=== PATIENT | female | born 1955 | race Caucasian/White ===

== ENCOUNTER 2017-05-14 12:28 | Emergency (ER) | payer OTHER | END 2017-05-14 16:55 | disposition home or self-care (01) | LOC: ER 12:28 | DX: S72.002A Fracture of unspecified part of neck of left femur, initial encounter for closed fracture (principal); J45.909 Unspecified asthma, uncomplicated; G89.29 Other chronic pain; K21.9 Gastro-esophageal reflux disease without esophagitis; Z90.710 Acquired absence of both cervix and uterus; Z90.49 Acquired absence of other specified parts of digestive tract; Z91.018 Allergy to other foods; Z88.8 Allergy status to other drugs, medicaments and biological substances; Z88.2 Allergy status to sulfonamides; Z88.0 Allergy status to penicillin; Z88.5 Allergy status to narcotic agent; Z91.040 Latex allergy status; Z91.041 Radiographic dye allergy status; X58.XXXA Exposure to other specified factors, initial encounter; Y93.89 Activity, other specified; Y99.8 Other external cause status; Y92.89 Other specified places as the place of occurrence of the external cause | CPT/HCPCS: 99284 ==

== ENCOUNTER → 2018-05-15 | Outpatient (CLI) | payer BC ==
[~2018-05-15] MED LIST: CETI10TA16 PO; FLUT16SP NS; IOHEXOL 180 MG/ML 10 ML VIAL. IJ ONE; LIDOCAINE WITH 8.4% SOD BICARB 3 ML DISP.SYRIN. INJ ONE; PSYL0.5215 PO; XOPENEX HFA15 GM IH
[2018-05-15 14:26] VITALS: BP 129/72
--- NOTE | 2018-05-15 15:02 | NUR ---
pt A&O x3. denies h/a. dressing on mid lower back is clean and dry. pt ambulated to BR w/o problem. c/o chronic left hip pain 07/27.tolerating po fluid well. reviewed d/c instructions. left unit - ambulatory and accompanied by .
--- NOTE | 2018-05-15 17:26 | RAD ---
Lumbar myelogram, 05/15/2018: History: Lumbar radiculopathy, left hip pain Under local anesthesia, aseptic conditions and fluoroscopic guidance a lumbar puncture was performed at the upper L3 level utilizing a 25-gauge lytic or spinal needle. Good clear CSF flow was obtained following which 10 cc of Omnipaque 180 was injected into the thecal sac. The spinal needle was then removed and hemostasis obtained. Appropriate digital imaging was then performed. 2.4 minutes of fluoroscopy time was utilized. 15 fluoroscopic spot images were recorded. 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 She tolerated the procedure well and left the department in stable condition. The following findings are delineated on the myelogram: 1. There is mild disc space narrowing and moderate marginal spurring at multiple levels. There are moderate degenerative changes involving the facet joints in the lower lumbar spine. 2. There are mild anterior extradural defect at all of the disc levels from L2-3 down through L5-S1. There is borderline narrowing of the AP diameter of the thecal sac at the L3-4 level. 3. Standing lateral views in flexion and extension show no significant subluxation or instability. 4. No other significant intradural or extradural abnormality is detected. CT of the lumbar spine-post myelogram, 05/15/2018: Multidetector CT imaging was performed with multiplanar reconstructions produced. The following findings are delineated: 1. At L1-2 the central spinal canal and neural foramina are well preserved. 2. At L2-3 there is mild disc space narrowing and marginal spurring. There is no significant posterior disc bulge or protrusion. The central spinal canal and neural foramina are well maintained. 3. At L3-4 there is mild broad-based posterior disc bulging with mild posterior marginal spurring. There are mild degenerative changes involving the facet joints with posterior ligamentous thickening. In the supine position the thecal sac measures 10-11 mm in AP diameter at the midline. There is no significant foraminal narrowing. 4. At L4-5 there is moderate broad-based posterior disc bulging and mild marginal spurring. There are mild degenerative changes involving the facet joints bilaterally. There is only minimal inferior foraminal narrowing bilaterally. The central spinal canal is well maintained. 5. At L5-S1 there is disc space narrowing with a vacuum disc phenomena and mild marginal spurring. There is mild posterior disc protrusion and disc calcification most prominent just to the left of midline. This abuts the S1 nerve root sleeves bilaterally but it does not significantly displace those structures. There are mild sclerotic changes involving the facet joints. The thecal sac is widely patent. The neural foramina are not significantly narrowed. IMPRESSION: 1. Mild to moderate multilevel degenerative change as described above. 2. Small posterior disc protrusion at L5-S1, without significant central spinal or foraminal stenosis. PQRS Compliance Statement: One or more of the following individualized dose reduction techniques were utilized for this examination: 1. Automated exposure control 2. Adjustment of the mA and/or kV according to patient size 3. Use of iterative reconstruction technique
== END | disposition home or self-care (01) ==
LOC: RAD 12:45
PROVIDERS: ATTEND Neurological Surgery
DX: M51.16 Intervertebral disc disorders with radiculopathy, lumbar region (principal); M48.061 Spinal stenosis, lumbar region without neurogenic claudication; Z88.5 Allergy status to narcotic agent; Z91.041 Radiographic dye allergy status; Z91.040 Latex allergy status; Z91.018 Allergy to other foods; I10 Essential (primary) hypertension; J45.909 Unspecified asthma, uncomplicated; Z98.1 Arthrodesis status; Z96.642 Presence of left artificial hip joint
CPT/HCPCS: 72132; 72265; Q9965

== ENCOUNTER → 2018-08-01 | Outpatient (CLI) | payer BC ==
[2018-05-15 14:26] VITALS: BP 129/72
[~2018-08-01] MED LIST changes: -IOHEXOL 180 MG/ML 10 ML VIAL. IJ ONE; -LIDOCAINE WITH 8.4% SOD BICARB 3 ML DISP.SYRIN. INJ ONE
--- NOTE | 2018-08-01 14:57 | KCIC ---
EXAM: Cervical spine MRI without contrast. HISTORY: Radiculopathy. TECHNIQUE: Multiplanar, multisequence magnetic resonance imaging of the cervical spine was performed without contrast. COMPARISON: CT dated 10/10/2012. FINDINGS: There is instrumented intraspinal fusion and interbody fusion at C3-4 through C6. There is mild anterolisthesis of C7 on T1 and minimal anterolisthesis of C3 on C4. There is degenerative endplate remodeling predominantly at C6-C7. There are few osseous hemangiomas. There is no suspicious osseous lesion. There is no suspicious spinal cord lesion. There is paranasal sinus mucosal thickening. There is edema within the right C7 pedicle and T1 superior articular facet. There is diffusely decreased T1 signal intensity. There are suspected prominent asymmetric vessels within the right posterior muscle fascial planes, an incidental finding. At C2-C3, there is no stenosis. At C3-C4, there is a posterior central to left paracentral disc protrusion. There is no stenosis. At C4-C5, there is instrumented fusion. There is mild facet arthropathy. There is no stenosis. At C5-C6, there is instrumented fusion. There is endplate osteophytosis. There is mild facet arthropathy. There is uncovertebral arthropathy. There is minimal right foraminal stenosis. At C6-C7, there is a disc bulge and endplate osteophytosis. There is uncovertebral body. There is mild left foraminal stenosis. At C7-T1, there is a posterior central disc protrusion and annular tear superimposed on endplate remodeling. There is moderate right facet arthropathy. There is edema within the T1 superior articular facet. There is no stenosis. IMPRESSION: 1. Instrumented intraspinal fusion and interbody fusion at C4-C6. 2. Degenerative change throughout the cervical spine, described in detail above. No severe stenosis is seen. 3. Nonspecific marrow edema involving the right C7 pedicle and T1 superior articular facet, possibly inflammatory or due to a stress reaction. 4. Mild diffusely decreased T1 marrow signal intensity. This may be due to imaging technique. The differential also includes changes due to anemia and chronic cigarette smoking history. This is not within limits to suggest a marrow infiltrative process. Electronically signed by: Kiya Parham MD (08/01/2018 2:54 PM) [id number]
== END | disposition home or self-care (01) ==
LOC: KCIC MRI 13:53
PROVIDERS: ATTEND Neurological Surgery
DX: M43.22 Fusion of spine, cervical region (principal); M47.892 Other spondylosis, cervical region; D64.9 Anemia, unspecified; M50.11 Cervical disc disorder with radiculopathy, high cervical region; M50.23 Other cervical disc displacement, cervicothoracic region; M12.88 Other specific arthropathies, not elsewhere classified, other specified site; M48.02 Spinal stenosis, cervical region; D18.09 Hemangioma of other sites; R60.0 Localized edema; Z87.891 Personal history of nicotine dependence
CPT/HCPCS: 72141